=== PATIENT | male | born 1955 | race Caucasian/White ===

== ENCOUNTER → 2016-04-08 | Outpatient (CLI) | payer MEDICARE, MEDICAID ==
[~2016-04-08] MED LIST: KEFLEX 500MG.500 MG PO; LEVOTHYROXINE0.05 MG NG; LORTAB 500 MG-11 TAB PO; MEDROL 4MG. DOSE4 MG PO; PHENERGAN 25MG.25 M1 PO; PROMETHAZINE D118 ML PO; PROVENTIL0.09 MG/A1 IH; TAMIFLU 75MG CA75 MG PO; ZITHROMAX Z PA250 MG PO
[2016-04-08 14:10] LABS: BUN 22 mg/dL (7-18); FREE THYROXIN INDEX 3.9 ug/dl (5.93-13.13); PROSTATE-SPECIFIC AG SCREEEN 1.5 ng/mL (0.0-4.0)
[2016-04-08 14:17] LABS: GFR (ESTIMATED) 62 ML/MIN (>60)
[2016-04-08 15:09] LABS: HEMOGLOBIN 15.1 g/dL (14.1-18.0); LYMPH # 2.5 K/mm3 (0.7-4.5); LYMPH % 32.9 % (10-50)
== END ==
LOC: CARL-LAB 08:35
PROVIDERS: Nurse Practitioner Family
DX: R30.0 Dysuria (principal); E03.9 Hypothyroidism, unspecified; M54.5 Low back pain; Z12.5 Encounter for screening for malignant neoplasm of prostate
CPT/HCPCS: G0103